=== PATIENT | female | born 1975 | race Caucasian/White ===

== ENCOUNTER → 2022-08-20 18:28 | Outpatient (REF) | payer OTHER, SELFPAY | LOC: CLAB 18:28 | PROVIDERS: ATTENDING PHYSICIAN Specialist | DX: Z85.3 Personal history of malignant neoplasm of breast (principal) | CPT/HCPCS: 88304; 88112 ==

== ENCOUNTER → 2025-03-28 12:45 | Outpatient (REF) | payer OTHER, SELFPAY | LOC: HWRAD 12:45 | PROVIDERS: ATTENDING PHYSICIAN Internal Medicine | DX: Z78.0 Asymptomatic menopausal state (principal) | CPT/HCPCS: 77080 ==